=== PATIENT | female | born 1975 | race Caucasian/White ===

== ENCOUNTER 2016-05-10 19:21 | Inpatient (IN) | payer BC ==
[~2016-05-10] VITALS: Ht 162.6 cm; Wt 64.9 kg
[2016-05-10 20:04] LABS: MEAN CORPUSCULAR HEMOGLOBIN 30.9 PG (27.0-31.0); MEAN CORPUSCULAR HGB CONC 32.4 G/DL (32.0-36.0); MEAN CORPUSCULAR VOLUME 95 FL (80-99); MEAN PLATELET VOLUME 6.8 FL (6.5-10.1); PLATELET COUNT 300 K/UL (150-450); RED BLOOD COUNT 4.76 M/UL (4.20-5.40); RED CELL DISTRIBUTION WIDTH 13.1 % (11.6-14.8); WHITE BLOOD COUNT 11.1 K/UL (4.8-10.8)
[2016-05-10 20:06] LABS: BASOPHILS % (AUTO) 0.6 % (0.0-2.0); EOSINOPHILS % (AUTO) 0.7 % (0.0-3.0); LYMPHOCYTES % (AUTO) 3.7 % (20.0-45.0); MONOCYTES % (AUTO) 3.5 % (1.0-10.0); NEUTROPHILS % (AUTO) 91.5 % (45.0-75.0)
[2016-05-10 20:21] LABS: PROTHROMBIN TIME 10.4 SEC (9.30-11.50); TROPONIN I < 0.30 ng/mL (<=0.30)
[2016-05-10 20:22] LABS: ALANINE AMINOTRANSFERASE 14 U/L (3-33); ALBUMIN/GLOBULIN RATIO 1.4 (1.0-2.7); ANION GAP 20 (5-15); ASPARTATE AMINO TRANSFERASE 15 U/L (5-40); CALCIUM 8.2 mg/dL (8.6-10.2); CARBON DIOXIDE 21 mEQ/L (20-30); CHLORIDE 102 mEQ/L (98-107); CREATININE 0.8 mg/dL (0.5-0.9); GLOMERULAR FILTRATION RATE > 60 mL/min (>60); HEMOLYSIS 6; LIPASE 19 U/L (< 60); POTASSIUM 3.8 mEQ/L (3.4-4.9); SODIUM 143 mEQ/L (135-145); TOTAL PROTEIN 6.7 g/dL (6.6-8.7)
[2016-05-10] MEDS ORDERED: Loperamide 2mg cap ORAL ONE (21:00)
[2016-05-10 21:24] LABS: APPEARANCE,URINE SLIGHTLY CLOUDY; KETONES,URINE 2+ (NEGATIVE); LEUKOCYTE ESTERASE ,URINE 2+ (NEGATIVE); NITRITE,URINE NEGATIVE (NEGATIVE); PH,URINE 6 (4.5-8.0); PROTEIN,URINE 1+ (NEGATIVE); UROBILINOGEN,URINE NORMAL MG/DL (0.0-1.0)
[2016-05-10 21:33] LABS: RBC,URINE TNTC /HPF (0 - 2)
[2016-05-10 21:34] LABS: BACTERIA,URINE MODERATE /HPF; SQUAMOUS EPITHELIAL CELL,UR OCCASIONAL /LPF (NONE/OCC); WBC,URINE 0 /HPF (0 - 2)
[2016-05-10 22:24] VITALS: BP 102/60
--- NOTE | 2016-05-10 22:45 | Emergency Room Report ---
History of Present Illness General Chief Complaint: Abdominal Pain Source: Patient Present Illness HPI Patient is a 40-year-old female who presented after increased crampy abdominal pain as well as vomiting. Patient having eaten some of meat which he felt might of been bad. She began having large amount of vomiting as well as some diarrhea. The patient reported having severe pain. She denied any prior medical history. The patient states that she has not been having any hematemesis or bloody stools. Allergies: Coded Allergies: PENICILLINS (Verified Allergy, Unknown, 05/10/16) Patient History Past Medical History: see triage record Last Menstrual Period: Apr Reviewed Nursing Documentation: PMH: Agreed, PSxH: Agreed Nursing Documentation-PMH History Of Psychiatric Problem: Yes - post depression Review of Systems All Other Systems: negative except mentioned in HPI Physical Exam Vital Signs Date Time Temp Pulse Resp B/P Pulse Ox O2 Delivery O2 Flow Rate FiO2 05/10/16 19:16 99.3 135 17 98/60 99 Room Air Sp02 EP Interpretation: reviewed, normal General Appearance: normal inspection, well appearing, no apparent distress, alert, GCS 15 Head: atraumatic ENT: normal ENT inspection, hearing grossly normal, normal voice Neck: normal inspection, full range of motion, supple, no bony tend Respiratory: normal inspection, lungs clear, normal breath sounds, no respiratory distress, no retraction, no wheezing Cardiovascular #1: regular rate, rhythm, no edema Gastrointestinal: normal inspection, normal bowel sounds, non tender, soft, no guarding, no hernia Genitourinary: no CVA tenderness Musculoskeletal: normal inspection, back normal, normal range of motion Neurologic: normal inspection, alert, oriented x3, responsive, check out cashier III-XII nml as tested, speech normal Psychiatric: normal inspection, judgement/insight normal, mood/affect normal Skin: no rash, pallor Medical Decision Making Diagnostic Impression: Primary Impression: Gastroenteritis Additional Impression: Dehydration ER Course Patient presented for near syncope. Differential diagnosis included was not limited to dehydration, sepsis, hypovolemia, anemia, ectopic among others.Because of complexity of patient's case laboratory testing and imaging studies were ordered. The patient given IV fluids the patient started on IV antiemetics. The patient was noted to have profuse watery diarrhea while in emergency department. The patient was noted to have a some improvement in her color after IV fluids. The patient was initially tachycardic with a heart rate about 140. The patient's heart rate subsequently improved. The patient was discussed with Dr. Willian Loco was contacted for inpatient management. Labs Test 05/10/16 19:30 05/10/16 20:57 White Blood Count 11.1 K/UL (4.8-10.8) Red Blood Count 4.76 M/UL (4.20-5.40) Hemoglobin 14.7 G/DL (12.0-16.0) Hematocrit 45.5 % (37.0-47.0) Mean Corpuscular Volume 95 FL (80-99) Mean Corpuscular Hemoglobin 30.9 PG (27.0-31.0) Mean Corpuscular Hemoglobin Concent 32.4 G/DL (32.0-36.0) Red Cell Distribution Width 13.1 % (11.6-14.8) Platelet Count 300 K/UL (150-450) Mean Platelet Volume 6.8 FL (6.5-10.1) Neutrophils (%) (Auto) 91.5 % (45.0-75.0) Lymphocytes (%) (Auto) 3.7 % (20.0-45.0) Monocytes (%) (Auto) 3.5 % (1.0-10.0) Eosinophils (%) (Auto) 0.7 % (0.0-3.0) Basophils (%) (Auto) 0.6 % (0.0-2.0) Prothrombin Time 10.4 SEC (9.30-11.50) Prothromb Time International Ratio 1.0 (0.9-1.1) Activated Partial Thromboplast Time 20 SEC (23-33) Sodium Level 143 mEQ/L (135-145) Potassium Level 3.8 mEQ/L (3.4-4.9) Chloride Level 102 mEQ/L (98-107) Carbon Dioxide Level 21 mEQ/L (20-30) Anion Gap 20 (5-15) Blood Urea Nitrogen 14 mg/dL (7-23) Creatinine 0.8 mg/dL (0.5-0.9) Estimat Glomerular Filtration Rate > 60 mL/min (>60) Glucose Level 113 mg/dL (74-106) Calcium Level 8.2 mg/dL (8.6-10.2) Total Bilirubin 0.5 mg/dL (0.0-1.2) Aspartate Amino Transf (AST/SGOT) 15 U/L (5-40) Alanine Aminotransferase (ALT/SGPT) 14 U/L (3-33) Alkaline Phosphatase 57 U/L (35-104) Troponin I < 0.30 ng/mL (<=0.30) Total Protein 6.7 g/dL (6.6-8.7) Albumin 4.0 g/dL (3.5-5.2) Globulin 2.7 g/dL Albumin/Globulin Ratio 1.4 (1.0-2.7) Lipase 19 U/L (< 60) Urine Color Yellow Urine Appearance Slightly cloudy Urine pH 6 (4.5-8.0) Urine Specific [place] 1.015 (1.005-1.035) Urine Protein 1+ (NEGATIVE) Urine Glucose (UA) Negative (NEGATIVE) Urine Ketones 2+ (NEGATIVE) Urine Occult Blood 5+ (NEGATIVE) Urine Nitrite Negative (NEGATIVE) Urine Bilirubin Negative (NEGATIVE) Urine Urobilinogen Normal MG/DL (0.0-1.0) Urine Leukocyte Esterase 2+ (NEGATIVE) Urine RBC Tntc /HPF (0 - 2) Urine WBC 0 /HPF (0 - 2) Urine Squamous Epithelial Cells Occasional /LPF Urine Bacteria Moderate /HPF (NONE) Urine HCG, Qualitative Negative Urine Opiates Screen Negative (NEGATIVE) Urine Barbiturates Screen Negative (NEGATIVE) Phencyclidine (PCP) Screen Negative (NEGATIVE) Urine Amphetamines Screen Negative (NEGATIVE) Urine Benzodiazepines Screen Negative (NEGATIVE) Urine Cocaine Screen Negative (NEGATIVE) Urine Marijuana (THC) Screen Negative (NEGATIVE) EKG Diagnostic Results Rate: tachycardiac Rhythm: NSR ST Segments: no acute changes Last Vital Signs Date Time Temp Pulse Resp B/P Pulse Ox O2 Delivery O2 Flow Rate FiO2 05/10/16 22:24 114 21 102/60 98 Room Air 05/10/16 19:16 99.3 Status: unchanged Disposition: ADMITTED INPATIENT Condition: Serious Referrals: NON PHYSICIAN (PCP) Kiran Luther May 10, 2016 22:45
[2016-05-10 23:10] VITALS: BP 109/55
[2016-05-11] VITALS (9 sets, daily range): BP systolic 88–137; BP diastolic 41–62
[2016-05-11] MEDS ORDERED: LEXAPRO10 MG ORAL (00:15)
[2016-05-11] MEDS ORDERED: HYDROmorphone 1mg/ml Carpuject IVP PRN (05:00)
[2016-05-11] MEDS ORDERED: LORazepam Inj 2mg/ml 1ml IV PRN (05:00)
[2016-05-11] MEDS: D5NS 1,000 ML IV SCH ×2 (05:20→16:24)
--- NOTE | 2016-05-11 14:52 | History and Physical ---
History of Present Illness General Date patient seen: May 11, 2016 Reason for Hospitalization: Abdominal Pain Present Illness HPI Patient is a 40-year-old female who presented after increased crampy abdominal pain as well as vomiting and diarrhea. Stated that she had some meat yesterday which tasted funny, and vomiting started after about an hour after eating the meat, she vomited about 10x before getting to the ED with severe abdominal pain. The pt was started on IV fluids and IV antiemetics in ED with some improvement in her condition. The patient's heart rate subsequently improved. She denied any prior medical history. Denies chest pain, no fever or chills. Allergies: Coded Allergies: PENICILLINS (Verified Allergy, Unknown, 05/10/16) Medication History Scheduled Escitalopram Oxalate* (Lexapro*), 5 MG ORAL DAILY, (Reported) Patient History Healthcare decision maker Resuscitation status Full Code Advanced Directive on File Social History Social History: (1) No history of alcohol use (2) No illicit drug use (3) Does not smoke Review of Systems Constitutional: Reports: weakness Eye: Denies: acuity changes, blurred vision, discharge, double vision, eye pain , no symptoms, nose congestion, nose pain, other, see HPI, tearing ENT: Denies: ear discharge, ear pain, hearing loss, mouth pain, nasal discharge , no symptoms, nose congestion, nose pain, other, see HPI, throat pain, throat swelling Respiratory: Denies: YE, cough, no symptoms, orthopnea, other, see HPI, shortness of breath, sputum, stridor, wheezing Cardiovascular: Denies: PND, chest pain, edema, no symptoms, other, palpitations, see HPI, syncope Gastrointestinal: Reports: abdominal pain, diarrhea, nausea, vomiting Genitourinary: Denies: discharge, dysuria, frequency, hematuria, incontinence, no symptoms, other, pain, retention, see HPI, urgency, vag bleed/dc Musculoskeletal: Denies: back pain, gout, joint pain, joint swelling, muscle pain, muscle stiffness, no symptoms, other, see HPI Skin: Denies: change in color, change in hair/nails, dryness, lesions, no symptoms, other, rash, see HPI Psychiatric: Denies: HI, SI, anxiety, depressed feelings, emotional problems, hallucinations, no symptoms, other, prior hx, see HPI Neurological: Denies: dizziness, focal weakness, headache, no symptoms, numbness, other, paresthesia, see HPI, seizure, syncope, tingling, tremors Hematologic/Lymphatic: Denies: anemia, blood clots, diathesis, easy bleeding, easy bruising, no symptoms, other, see HPI, swollen glands Physical Exam General Appearance: no apparent distress, alert Lines, tubes and drains: peripheral HEENT: normocephalic, atraumatic Neck: non-tender, normal alignment, supple, normal inspection Respiratory/Chest: lungs clear, normal breath sounds, no respiratory distress Cardiovascular/Chest: normal peripheral pulses, normal rate, regular rhythm Abdomen: non tender, soft, no organomegaly Extremities: normal range of motion, non-tender, normal inspection, no calf tenderness Skin Exam: normal pigmentation, warm/dry Neurologic: alert, oriented x 3, responsive, normal mood/affect Last 24 Hour Vital Signs Date Time Temp Pulse Resp B/P Pulse Ox O2 Delivery O2 Flow Rate FiO2 05/11/16 11:43 98.2 99 18 101/51 96 Room Air 05/11/16 08:09 98.1 95 18 88/54 100 Room Air 05/11/16 04:00 97.7 106 18 89/52 97 Room Air 05/11/16 03:02 99.3 105 18 98/56 100 Room Air 05/11/16 02:52 99.3 105 18 98/56 100 Room Air 05/11/16 01:27 99.3 110 18 104/62 99 Room Air 05/11/16 00:51 110 18 95/61 100 Room Air 05/10/16 23:10 99.3 113 17 109/55 100 Room Air 05/10/16 22:24 114 21 102/60 98 Room Air 05/10/16 19:16 99.3 135 17 98/60 99 Room Air Intake and Output 05/10/16 05/11/16 18:59 06:59 Intake Total 2060 ml Output Total 200 ml Balance 1860 ml Intake Oral 60 ml IV Total 2000 ml Output Stool Total 200 ml # Voids 1 # Bowel Movements 3 Laboratory Tests Test 05/10/16 19:30 05/10/16 20:57 White Blood Count 11.1 K/UL (4.8-10.8) H Red Blood Count 4.76 M/UL (4.20-5.40) Hemoglobin 14.7 G/DL (12.0-16.0) Hematocrit 45.5 % (37.0-47.0) Mean Corpuscular Volume 95 FL (80-99) Mean Corpuscular Hemoglobin 30.9 PG (27.0-31.0) Mean Corpuscular Hemoglobin Concent 32.4 G/DL (32.0-36.0) Red Cell Distribution Width 13.1 % (11.6-14.8) Platelet Count 300 K/UL (150-450) Mean Platelet Volume 6.8 FL (6.5-10.1) Neutrophils (%) (Auto) 91.5 % (45.0-75.0) H Lymphocytes (%) (Auto) 3.7 % (20.0-45.0) L Monocytes (%) (Auto) 3.5 % (1.0-10.0) Eosinophils (%) (Auto) 0.7 % (0.0-3.0) Basophils (%) (Auto) 0.6 % (0.0-2.0) Prothrombin Time 10.4 SEC (9.30-11.50) Prothromb Time International Ratio 1.0 (0.9-1.1) Activated Partial Thromboplast Time 20 SEC (23-33) L Sodium Level 143 mEQ/L (135-145) Potassium Level 3.8 mEQ/L (3.4-4.9) Chloride Level 102 mEQ/L (98-107) Carbon Dioxide Level 21 mEQ/L (20-30) Anion Gap 20 (5-15) H Blood Urea Nitrogen 14 mg/dL (7-23) Creatinine 0.8 mg/dL (0.5-0.9) Estimat Glomerular Filtration Rate > 60 mL/min (>60) Glucose Level 113 mg/dL (74-106) H Calcium Level 8.2 mg/dL (8.6-10.2) L Total Bilirubin 0.5 mg/dL (0.0-1.2) Aspartate Amino Transf (AST/SGOT) 15 U/L (5-40) Alanine Aminotransferase (ALT/SGPT) 14 U/L (3-33) Alkaline Phosphatase 57 U/L (35-104) Troponin I < 0.30 ng/mL (<=0.30) Total Protein 6.7 g/dL (6.6-8.7) Albumin 4.0 g/dL (3.5-5.2) Globulin 2.7 g/dL Albumin/Globulin Ratio 1.4 (1.0-2.7) Lipase 19 U/L (< 60) Urine Color Yellow Urine Appearance Slightly cloudy Urine pH 6 (4.5-8.0) Urine Specific [place] 1.015 (1.005-1.035) Urine Protein 1+ (NEGATIVE) H Urine Glucose (UA) Negative (NEGATIVE) Urine Ketones 2+ (NEGATIVE) H Urine Occult Blood 5+ (NEGATIVE) H Urine Nitrite Negative (NEGATIVE) Urine Bilirubin Negative (NEGATIVE) Urine Urobilinogen Normal MG/DL (0.0-1.0) Urine Leukocyte Esterase 2+ (NEGATIVE) H Urine RBC Tntc /HPF (0 - 2) H Urine WBC 0 /HPF (0 - 2) Urine Squamous Epithelial Cells Occasional /LPF Urine Bacteria Moderate /HPF (NONE) H Urine HCG, Qualitative Negative Urine Opiates Screen Negative (NEGATIVE) Urine Barbiturates Screen Negative (NEGATIVE) Phencyclidine (PCP) Screen Negative (NEGATIVE) Urine Amphetamines Screen Negative (NEGATIVE) Urine Benzodiazepines Screen Negative (NEGATIVE) Urine Cocaine Screen Negative (NEGATIVE) Urine Marijuana (THC) Screen Negative (NEGATIVE) Microbiology Date/Time Source Procedure Growth Status 05/10/16 20:57 Urine,Clean Catch Urine Culture - Preliminary Resulted Height (Feet): 5 Height (Inches): 4.00 Weight (Pounds): 143 Medications Current Medications Medications (Trade) Dose Ordered Sig/Pili Route PRN Reason Start Time Stop Time Status Last Admin Dose Admin Dextrose/Sodium Chloride (D5ns) 1,000 ml @ 80 mls/hr [id number] IV 05/11/16 05:00 06/10/16 04:59 05/11/16 05:20 Hydromorphone HCl (Dilaudid) 1 mg Q4H PRN IVP Severe Pain (Pain Scale 7-10) 05/11/16 05:00 05/18/16 04:59 05/11/16 05:23 Lorazepam (Ativan 2mg/ml 1ml) 1 mg Q4H PRN IV For Anxiety 05/11/16 05:00 05/18/16 04:59 Ondansetron HCl (Zofran) 4 mg Q4H PRN IVP Nausea & Vomiting 05/11/16 05:00 06/10/16 04:59 05/11/16 05:21 Assessment/Plan Problem List: (1) Dehydration ICD Codes: E86.0 - Dehydration SNOMED: 48679286 (2) Gastroenteritis ICD Codes: K52.9 - Noninfective gastroenteritis and colitis, unspecified SNOMED: 30182629 Status: doing well, stable Assessment/Plan Will continue IVF Monitor Lytes Monitor counts GI consult, will f/u with rec Pain management AM LABS Rachel Melchor N.P. May 11, 2016 14:52
[2016-05-11] MEDS ORDERED: Norco 5mg/325mg tab ORAL PRN (15:30)
--- NOTE | 2016-05-11 17:39 | General Progress Note ---
Assessment/Plan Assessment/Plan GI Consult Dictated Likely viral gastroenteritis Thank you Clark Webster MD Subjective Allergies: Coded Allergies: PENICILLINS (Verified Allergy, Unknown, 05/10/16) Objective Last 24 Hour Vital Signs Date Time Temp Pulse Resp B/P Pulse Ox O2 Delivery O2 Flow Rate FiO2 05/11/16 16:10 99.5 93 22 96/41 96 Room Air 05/11/16 11:43 98.2 99 18 101/51 96 Room Air 05/11/16 08:09 98.1 95 18 88/54 100 Room Air 05/11/16 04:00 97.7 106 18 89/52 97 Room Air 05/11/16 03:02 99.3 105 18 98/56 100 Room Air 05/11/16 02:52 99.3 105 18 98/56 100 Room Air 05/11/16 01:27 99.3 110 18 104/62 99 Room Air 05/11/16 00:51 110 18 95/61 100 Room Air 05/10/16 23:10 99.3 113 17 109/55 100 Room Air 05/10/16 22:24 114 21 102/60 98 Room Air 05/10/16 19:16 99.3 135 17 98/60 99 Room Air Intake and Output 05/10/16 05/11/16 19:00 07:00 Intake Total 2060 ml Output Total 200 ml Balance 1860 ml Intake Oral 60 ml IV Total 2000 ml Output Stool Total 200 ml # Voids 1 # Bowel Movements 3 Laboratory Tests 05/10/16 19:30: White Blood Count 11.1H, Red Blood Count 4.76, Hemoglobin 14.7, Hematocrit 45.5 , Mean Corpuscular Volume 95, Mean Corpuscular Hemoglobin 30.9, Mean Corpuscular Hemoglobin Concent 32.4, Red Cell Distribution Width 13.1, Platelet Count 300, Mean Platelet Volume 6.8, Neutrophils (%) (Auto) 91.5H, Lymphocytes ( %) (Auto) 3.7L, Monocytes (%) (Auto) 3.5, Eosinophils (%) (Auto) 0.7, Basophils (%) (Auto) 0.6, Prothrombin Time 10.4, Prothromb Time International Ratio 1.0, Activated Partial Thromboplast Time 20L, Sodium Level 143, Potassium Level 3.8, Chloride Level 102, Carbon Dioxide Level 21, Anion Gap 20H, Blood Urea Nitrogen 14, Creatinine 0.8, Estimat Glomerular Filtration Rate > 60, Glucose Level 113H , Calcium Level 8.2L, Total Bilirubin 0.5, Aspartate Amino Transf (AST/SGOT) 15 , Alanine Aminotransferase (ALT/SGPT) 14, Alkaline Phosphatase 57, Troponin I < 0.30, Total Protein 6.7, Albumin 4.0, Globulin 2.7, Albumin/Globulin Ratio 1.4, Lipase 19 05/10/16 20:57: Urine Color Yellow, Urine Appearance Slightly cloudy, Urine pH 6, Urine Specific [place] 1.015, Urine Protein 1+H, Urine Glucose (UA) Negative, Urine Ketones 2+H, Urine Occult Blood 5+H, Urine Nitrite Negative, Urine Bilirubin Negative, Urine Urobilinogen Normal, Urine Leukocyte Esterase 2+H, Urine RBC TntcH, Urine WBC 0, Urine Squamous Epithelial Cells Occasional, Urine Bacteria ModerateH, Urine HCG, Qualitative Negative, Urine Opiates Screen Negative, Urine Barbiturates Screen Negative, Phencyclidine (PCP) Screen Negative, Urine Amphetamines Screen Negative, Urine Benzodiazepines Screen Negative, Urine Cocaine Screen Negative, Urine Marijuana (THC) Screen Negative Height (Feet): 5 Height (Inches): 4.00 Weight (Pounds): 143 CLARK WEBSTER May 11, 2016 17:39
[2016-05-11] MEDS ORDERED: D5NS 1000ml IV ONE (17:49)
[2016-05-12] VITALS: BP 113/58
[2016-05-12 02:16] VITALS: BP 113/58
--- NOTE | 2016-05-12 03:17 | Consultation ---
DATE OF CONSULTATION: 05/11/2016 GASTROLOGY CONSULTATION CHIEF COMPLAINT: I was asked to see this patient by Dr. Willian Loco for evaluation of GI symptoms. HISTORY OF PRESENT ILLNESS: The patient is a pleasant 40-year-old white woman without significant past medical history, coming in with one-day history of abdominal cramps, nausea, vomiting, and brown diarrhea. She has also had some fevers and chills. She did not have any contacts with friends or family members with the same. She feels better today and she feels hungry. She has had no nausea or vomiting since she has been admitted to the hospital, but still has diarrhea. She does not have any recent travels or . PAST MEDICAL HISTORY: History of depression state, on Lexapro. MEDICATIONS: See chart. ALLERGIES: Penicillin. SOCIAL HISTORY: The patient is . She has one child. She drinks once a week. She occasionally smoke. She has . REVIEW OF SYSTEMS: Otherwise negative. PHYSICAL EXAMINATION: GENERAL: The patient is a well-developed, well-nourished white woman, seen in her room. HEENT: Normocephalic and atraumatic. Sclerae anicteric. Oropharynx clear. NECK: Supple. CHEST: Clear to auscultation. CARDIAC: Regular rate. ABDOMEN: Soft and flat with mild left-sided tenderness without guarding or rebound. EXTREMITIES: Revealed no edema. LABORATORY AND DIAGNOSTIC DATA: Laboratory data was noted. ASSESSMENT: This patient presents with acute onset of nausea, vomiting, diarrhea, fevers, and chills, which is rapidly resolving. There are no significant findings on laboratory parameters in her presentation, it is suggestive of viral gastroenteritis, which is resolving. If it continues to resolve, the patient will be hydrated and discharged perhaps by tomorrow. If her symptoms persist, then further evaluation may be necessary. For the time being, I will only order stool culture in the case there is significant pathogen that may be found. Other than that, no further workup is necessary at this time. The patient has had an opportunity to ask all her questions. RECOMMENDATIONS: 1. Continue IV hydration. 2. Advance diet. 3. Follow up symptoms. 4. Check stool cultures and Clostridium difficile. Thank you for asking me to participate in the care of this patient. Clark Webster M.D. DR: STEPHANIE JOB#: [id number] CC:
[2016-05-12 04:06] VITALS: BP 101/56
[2016-05-12 06:15] LABS: BASOPHILS % (AUTO) 1.7 % (0.0-2.0); EOSINOPHILS % (AUTO) 4.4 % (0.0-3.0); LYMPHOCYTES % (AUTO) 16.4 % (20.0-45.0); MEAN CORPUSCULAR HEMOGLOBIN 30.9 PG (27.0-31.0); MEAN CORPUSCULAR HGB CONC 32.5 G/DL (32.0-36.0); MEAN CORPUSCULAR VOLUME 95 FL (80-99); MEAN PLATELET VOLUME 7.4 FL (6.5-10.1); MONOCYTES % (AUTO) 15.7 % (1.0-10.0); NEUTROPHILS % (AUTO) 61.8 % (45.0-75.0); PLATELET COUNT 175 K/UL (150-450); RED CELL DISTRIBUTION WIDTH 13.1 % (11.6-14.8); WHITE BLOOD COUNT 4.3 K/UL (4.8-10.8)
[2016-05-12 06:58] LABS: ANION GAP 12 (5-15); CARBON DIOXIDE 24 mEQ/L (20-30); CHLORIDE 106 mEQ/L (98-107); CREATININE 0.6 mg/dL (0.5-0.9); GLOMERULAR FILTRATION RATE > 60 mL/min (>60); HEMOLYSIS 4; POTASSIUM 3.4 mEQ/L (3.4-4.9); SODIUM 142 mEQ/L (135-145)
[2016-05-12] MEDS: D5NS 1,000 ML IV SCH (07:00)
[2016-05-12 08:00] VITALS: BP 96/57
--- NOTE | 2016-05-12 10:42 | GI Progress Note ---
Assessment/Plan Problems: (1) N&V (nausea and vomiting) ICD Codes: R11.2 - Nausea with vomiting, unspecified SNOMED: 98906186 (2) Gastroenteritis ICD Codes: K52.9 - Noninfective gastroenteritis and colitis, unspecified SNOMED: 55844700 (3) Dehydration ICD Codes: E86.0 - Dehydration SNOMED: 54359588 Status: stable, progressing Status Narrative Discussed with Dr. Corbin. Assessment/Plan okay for DC per GI if tolerates lunch adv to regular diet zofran prn abx for UTI cdiff negative utox negative fu labs Subjective Gastrointestinal/Abdominal: Reports: abdominal pain - resolved, diarrhea - improved Objective Last 24 Hour Vital Signs Date Time Temp Pulse Resp B/P Pulse Ox O2 Delivery O2 Flow Rate FiO2 05/12/16 08:00 97.7 83 20 96/57 98 Room Air 05/12/16 04:06 99.5 96 18 101/56 96 Room Air 05/12/16 00:00 99.0 93 22 113/58 98 Room Air 05/11/16 20:00 98.6 94 22 112/56 94 Room Air 05/11/16 16:40 98.0 95 20 102/56 96 Room Air 05/11/16 16:10 99.5 93 22 96/41 96 Room Air 05/11/16 11:43 98.2 99 18 101/51 96 Room Air Intake and Output 05/11/16 05/12/16 18:59 06:59 Intake Total 1680 ml 1420 ml Balance 1680 ml 1420 ml Intake Oral 800 ml 540 ml IV Total 880 ml 880 ml # Voids 5 4 # Bowel Movements 2 3 Laboratory Tests Test 05/12/16 04:20 White Blood Count 4.3 K/UL (4.8-10.8) #L Red Blood Count 3.60 M/UL (4.20-5.40) L Hemoglobin 11.1 G/DL (12.0-16.0) L Hematocrit 34.2 % (37.0-47.0) L Mean Corpuscular Volume 95 FL (80-99) Mean Corpuscular Hemoglobin 30.9 PG (27.0-31.0) Mean Corpuscular Hemoglobin Concent 32.5 G/DL (32.0-36.0) Red Cell Distribution Width 13.1 % (11.6-14.8) Platelet Count 175 K/UL (150-450) Mean Platelet Volume 7.4 FL (6.5-10.1) Neutrophils (%) (Auto) 61.8 % (45.0-75.0) Lymphocytes (%) (Auto) 16.4 % (20.0-45.0) L Monocytes (%) (Auto) 15.7 % (1.0-10.0) H Eosinophils (%) (Auto) 4.4 % (0.0-3.0) H Basophils (%) (Auto) 1.7 % (0.0-2.0) Sodium Level 142 mEQ/L (135-145) Potassium Level 3.4 mEQ/L (3.4-4.9) Chloride Level 106 mEQ/L (98-107) Carbon Dioxide Level 24 mEQ/L (20-30) Anion Gap 12 (5-15) Blood Urea Nitrogen 4 mg/dL (7-23) L Creatinine 0.6 mg/dL (0.5-0.9) Estimat Glomerular Filtration Rate > 60 mL/min (>60) Glucose Level 123 mg/dL (74-106) H Calcium Level 7.0 mg/dL (8.6-10.2) L Microbiology Date/Time Source Procedure Growth Status 05/11/16 12:40 Stool Clostridium difficile Toxin Assay - Final Complete Height (Feet): 5 Height (Inches): 4.00 Weight (Pounds): 143 General Appearance: no apparent distress, alert Cardiovascular: normal rate Respiratory/Chest: normal breath sounds, no respiratory distress Abdominal Exam: normal bowel sounds, non tender Extremities: normal range of motion Edith Melendez NJannette May 12, 2016 10:42
[2016-05-12 12:00] VITALS: BP 97/63
[2016-05-12] MEDS ORDERED: Tums 500mg ORAL SCH (13:15)
[2016-05-12] MEDS ORDERED: CIPRO500 MG PO (16:20)
[2016-05-12] MEDS ORDERED: D5NS 1000ml IV ONE (16:34)
--- NOTE | 2016-05-14 09:22 | Discharge Summary ---
Discharge Summary Hospital Course Date of Admission May 10, 2016 at 20:47 Date of Discharge May 12, 2016 at 16:35 Admitting Diagnosis gastroenteritis,dehydration HPI Martina Davison is a 40 year old female who was admitted on May 10, 2016 at 20: 47 for Sepsis Hospital Course [id number] Discharge Discharge Disposition Patient was discharged to Home (01) Discharge Diagnoses: Jenny Freedman NP May 14, 2016 09:22
--- NOTE | 2016-05-14 23:57 | Discharge Summary 2 SIG ---
DATE OF ADMISSION: 05/10/2016 DATE OF DISCHARGE: 05/12/2016 RN CASE MGR: Jonathan Corbin M.D. BRIEF HOSPITAL COURSE: The patient is a 40-year-old female, who presented with increased abdominal pain with vomiting and diarrhea. She had episode of vomiting x10. She presented to ED with severe abdominal pain and was started on IV fluids and IV emetics. GI was consulted. On presentation, symptoms are suggestive of viral gastroenteritis, which is resolving. Diet was advanced. C. diff was negative. Urine toxicology was negative. The patient was eventually discharged home. FINAL DIAGNOSES: 1. Acute viral gastroenteritis. 2. Dehydration. Willian Loco M.D. I have been assigned to dictate discharge summary on this account and I was not involved in the patient's management. Jenny Freedman N.P. DR: KEVEN JOB#: [id number] CC: FAUSTINA
== END 2016-05-12 16:35 | disposition home or self-care (01) | DRG 392 ==
LOC: ENRESERVTM → ENRESERVDT → EDBD 19:21 → EMR 20:46 → 4W 20:47 → EDBEDREQ 21:18 → EDBEDREQSVC 05-11 01:48 → EDBEDREQ 05-11 02:17
DX: A08.4 Viral intestinal infection, unspecified (principal); E86.0 Dehydration; Z72.0 Tobacco use; Z88.0 Allergy status to penicillin
CPT/HCPCS: 36415; 80048; 80053; 80300; 81003; 81025; 83690; 84484; 85025; 85610; 85730; 86900; 86901; 87086; 87493; J2405